=== PATIENT | female | born 1990 | race Two or more races ===

== ENCOUNTER 2016-10-11 07:04 | Emergency (ER) | payer OTHER ==
[~2016-10-11] VITALS: Ht 149.9 cm; Wt 48.5 kg
[~2016-10-11 07:04] MED LIST: CYCL-331 PO; ETON68IM3 SQ
[2016-10-11 07:10] VITALS: BP 120/76
--- NOTE | 2016-10-11 07:36 | PHYS DOC ---
Past History Past Medical History: No Pertinent History Past Surgical History: Other Additional Past Surgical Histo: Ankle Surgery Smoking: Cigarettes Alcohol Use: Occasionally Drug Use: None Adult General Chief Complaint Chief Complaint: Pt c/o RLQ/ Flank pain starting at approx 3am Pt states pain occured suddenly while walking at work. Pt denies injury or trauma. HPI HPI Patient is a 26yo year old female who presents with sudden onset of RLQ pain. Pt was at work and started suddenly while walking. Pain is constant pressure pain with intermittent episodes of sharp pain. Now pain is also located in R flank. Pt has some urgency with urination but denies dysuria or hematuria. Pt denies vaginal discharge. Pt denies N/V, no diarrhea. Pt states pain currently 3/10 "pressure" but when is "sharp" pain is 8-9/10., Pt denies F/C Pt is , since has BCP implant 2014 no menses, pt has one sexual partner Review of Systems Review of Systems Constitutional: Denies fever or chills Eyes: Denies change in visual acuity, redness, or eye pain HENT: Pt states has had some nasal congestion and mild cough for few days Respiratory: Mild cough without sputum and denies shortness of breath Cardiovascular: Denies Chest pain GI: Abdominal pain, no N/V, No Diarrhea, no hematemisis, no rectal bleeding, no melena : Denies dysuria or hematuria Musculoskeletal: Denies joint pain or swelling Integument: Denies rash or skin lesions Neurologic: Denies headache, focal weakness or sensory changes Endocrine: Denies polyuria or polydipsia Family History Family History Father has hx of Kidney stones Current Medications Current Medications none Allergies Allergies Allergies Coded Allergies Type Severity Reaction Last Updated Verified No Known Drug Allergies 12/13/15 No Physical Exam Physical Exam Constitutional: Well developed, well nourished, no acute distress, non-toxic appearance. HENT: Normocephalic, atraumatic, bilateral external ears normal, oropharynx moist, no oral exudates, nose normal. Eyes: PERRL, EOMI, conjunctiva normal, no discharge. Neck: Normal range of motion, no tenderness, supple, no stridor. Cardiovascular:Heart rate regular rhythm, no murmur Lungs & Thorax: Bilateral breath sounds clear to auscultation Abdomen: Bowel sounds normal, soft, mild RLQ tenderness to palpation, not tender of McBurneys pt, mild LLQ tenderness, no guarding, no rebound Skin: Warm, dry, no erythema, no rash. Back: No tenderness, no CVA tenderness. Extremities: No tenderness, no cyanosis, no clubbing, ROM intact, no edema. Neurologic: Alert and oriented X 3, normal motor function, normal sensory function, no focal deficits noted. Psychologic: Affect normal, judgement normal, mood normal. Pelvic Exam--white vaginal discharge, no cervical inflammation, Bimanual-no CMT , Mild R adenexal tenderness, no masses Current Patient Data Lab Results CBC normal with no left shift Metabolic panel normal with slightly low K+ Urine negative for infection or significant RBC, Urine HCG--neg EKG EKG [] Radiology/Procedures Radiology/Procedures Vital Signs Date Time Temp Pulse Resp B/P (MAP) Pulse Ox O2 Delivery O2 Flow Rate FiO2 10/11/16 07:10 98.3 76 16 100 Room Air Vital Signs Date Time Temp Pulse Resp B/P (MAP) Pulse Ox O2 Delivery O2 Flow Rate FiO2 10/11/16 07:10 98.3 76 16 100 Room Air Laboratory Tests Test 10/11/16 07:13 10/11/16 07:32 10/11/16 07:36 Urine Collection Type Unknown Urine Color Yellow Urine Clarity Hazy Urine pH 5.5 Urine Specific Ralph 1.025 Urine Protein Neg Urine Glucose (UA) Neg mg/dL Urine Ketones (Stick) Neg mg/dL Urine Blood Neg Urine Nitrite Neg Urine Bilirubin Neg Urine Urobilinogen Dipstick 0.2 mg/dL Urine Leukocyte Esterase Neg Urine RBC 1-2 /HPF Urine WBC Occ /HPF Urine Squamous Epithelial Cells Mod /LPF Urine Bacteria Few /HPF Urine Mucus Mod /LPF White Blood Count 6.9 x10^3/uL Red Blood Count 4.48 x10^6/uL Hemoglobin 13.4 g/dL Hematocrit 40.1 % Mean Corpuscular Volume 89 fL Mean Corpuscular Hemoglobin 30 pg Mean Corpuscular Hemoglobin Concent 33 g/dL Red Cell Distribution Width 12.6 % Platelet Count 196 x10^3/uL Neutrophils (%) (Auto) 45 % Lymphocytes (%) (Auto) 46 % Monocytes (%) (Auto) 6 % Eosinophils (%) (Auto) 2 % Basophils (%) (Auto) 1 % Neutrophils # (Auto) 3.1 x10^3uL Lymphocytes # (Auto) 3.2 x10^3/uL Monocytes # (Auto) 0.4 x10^3/uL Eosinophils # (Auto) 0.1 x10^3/uL Basophils # (Auto) 0.0 x10^3/uL Sodium Level 140 mmol/L Potassium Level 3.2 mmol/L Chloride Level 103 mmol/L Carbon Dioxide Level 27 mmol/L Anion Gap 10 Blood Urea Nitrogen 9 mg/dL Creatinine 0.7 mg/dL Estimated GFR (Cockcroft-Gault) 102.8 BUN/Creatinine Ratio 13 Glucose Level 120 mg/dL Calcium Level 8.7 mg/dL Total Bilirubin 0.3 mg/dL Aspartate Amino Transf (AST/SGOT) 17 U/L Alanine Aminotransferase (ALT/SGPT) 23 U/L Alkaline Phosphatase 63 U/L Total Protein 7.7 g/dL Albumin 3.8 g/dL Albumin/Globulin Ratio 1.0 Bedside Urine HCG, Qualitative hcg negative Current Medications Medications (Trade) Dose Ordered Sig/Mabel Route PRN Reason Start Time Stop Time Status Last Admin Dose Admin Sodium Chloride 1,000 ml @ 1,000 mls/hr 1X ONCE IV 10/11/16 07:45 10/11/16 08:44 10/11/16 07:45 [] Impressions: CT Abdomen and Pelvis--no stone, R ovarian cyst 2cm, duplicated R collecting system incidental finding, no hydro Course & Med Decision Making Course & Med Decision Making Pertinent Labs and Imaging studies reviewed. (See chart for details) Pt states feeling better, pt had some chest tightness after CT and obtained CXR- -negative and discussed with radiology Pt no tenderness over McBurneys point. Lungs CTA bilat Pt states pain better after Toradol Discussed with pt about ovarian cysts, appendicitis precautions and duplicated R renal collecting system seen on CT Will D/C home with follow up with PCP [place] Disclaimer Dragon Disclaimer This chart was dictated in whole or in part using Voice Recognition software in a busy, high-work load, and often noisy Emergency Department environment. It may contain unintended and wholly unrecognized errors or omissions. Departure Departure: Impression: Primary Impression: Right ovarian cyst Additional Impressions: Chest tightness Kidney stones Duplicated right renal collecting system Disposition: HOME, SELF-CARE Condition: STABLE Referrals: ADY TEIXEIRA (PCP) Patient Instructions: Ovarian Cyst Additional Instructions: Start Naprosyn for pain Follow up with your primary care physician in 1-3 days for recheck Return if worse or change in symptoms Problem Qualifiers DAVID DICKINSON MD October 11, 2016 07:36
[2016-10-11] MEDS ORDERED: IV NORMAL SALINE 1,000ML 1,000 ML IV ONE (07:45)
[2016-10-11 07:55] LABS: BASO % 1 % (0-3); EOS # 0.1 x10^3/uL (0.0-0.7); EOS % 2 % (0-3); HEMATOCRIT 40.1 % (36.0-47.0); HEMOGLOBIN 13.4 g/dL (12.0-15.5); LYMPH # 3.2 x10^3/uL (1.0-4.8); LYMPH % 46 % (24-48); MEAN CORPUSCULAR HEMOGLOBIN 30 pg (25-35); MEAN CORPUSCULAR HGB CONC 33 g/dL (31-37); MEAN CORPUSCULAR VOLUME 89 fL (79-100); MONO # 0.4 x10^3/uL (0.0-1.1); MONO % 6 % (0-9); NEUT # 3.1 x10^3uL (1.8-7.7); NEUT % 45 % (31-73); PLATELET COUNT 196 x10^3/uL (140-400); RED BLOOD COUNT 4.48 x10^6/uL (3.50-5.40); RED CELL DISTRIBUTION WIDTH 12.6 % (11.5-14.5); WHITE BLOOD COUNT 6.9 x10^3/uL (4.0-11.0)
[2016-10-11 08:03] LABS: BILIRUBIN,URINE NEG (NEG); CLARITY,URINE HAZY; COLOR,URINE YELLOW; GLUCOSE,URINE NEG (NEG)
[2016-10-11 08:04] LABS: ALBUMIN 3.8 g/dL (3.4-5.0); CALCIUM 8.7 mg/dL (8.5-10.1); CREATININE 0.7 mg/dL (0.6-1.0); GFR 102.8; POTASSIUM 3.2 mmol/L (3.5-5.1); TOTAL BILIRUBIN 0.3 mg/dL (0.2-1.0); TOTAL PROTEIN 7.7 g/dL (6.4-8.2)
[2016-10-11 08:04] LABS: BACTERIA,URINE FEW /HPF (0-FEW); NITRITE,URINE NEG (NEG); SQUAMOUS EPITHELIAL CELL,UR MOD /LPF; UROBILINOGEN,URINE 0.2 mg/dL (0.2 mg/dL); WBC,URINE OCC /HPF (0-4)
--- NOTE | 2016-10-11 08:37 | RAD ---
CT abdomen pelvis without contrast Indication: Right flank pain and right lower quadrant pain. Axial imaging through the abdomen and pelvis was performed without contrast. PQRS STATEMENT One or more of the following individualized dose reduction techniques were utilized for this study: 1.Automated exposure control. 2.Adjustment of the mA and/orkVaccording to patient size. 3.Use of iterative reconstruction technique. No prior studies are available for comparison. Lung bases are clear. Liver and gallbladder are unremarkable. The pancreas and spleen are unremarkable. No adrenal mass is identified. There appears to be duplication of the right renal collecting system and right ureter. However, no definite calculi are identified. The bladder is unremarkable. Small is a small cyst in the right ovary measuring 2 centimeters. No free fluid. The appendix appears unremarkable. Impression: 2 centimeter right ovarian cyst. Study is otherwise unremarkable. No urinary tract calculi or hydronephrosis is detected. Electronically signed by: Leeroy Giordano MD (October 11, 2016 08:36:25)
[2016-10-11] MEDS ORDERED: KETOROLAC 30 MG/ML VIAL. IV ONE (09:10)
--- NOTE | 2016-10-11 10:51 | RAD ---
Indication: Right flank pain. Time of exam 0848 hours. The heart size is normal. The lungs are clear. The pulmonary vascularity is normal. No infiltrate, effusion or pneumothorax is seen. Impression: No acute cardiopulmonary process is detected. MTDD
[2016-10-12 20:07] LABS: CHLAMYDIA PROBE Negative (Negative)
== END 2016-10-11 09:53 | disposition home or self-care (01) ==
LOC: ER 07:04
DX: N83.201 Unspecified ovarian cyst, right side (principal); R07.89 Other chest pain; N20.0 Calculus of kidney; Q63.8 Other specified congenital malformations of kidney; F17.210 Nicotine dependence, cigarettes, uncomplicated
CPT/HCPCS: 36415; 71020; 74176; 80053; 81001; 84703; 85027; 87491; 87591; 96361; 96374; 99285; J1885; Q0111; 81025; J7030

== ENCOUNTER 2017-07-14 05:34 | Emergency (ER) | payer OTHER ==
[~2017-07-14] VITALS: Ht 149.9 cm; Wt 46.7 kg
[2017-07-14] MEDS ORDERED: IV NORMAL SALINE 1,000ML 1,000 ML IV ONE (06:00)
--- NOTE | 2017-07-14 06:07 | PHYS DOC ---
Past History Past Medical History: No Pertinent History Past Surgical History: Other Additional Past Surgical Histo: Ankle Surgery Smoking: Cigarettes Alcohol Use: Occasionally Drug Use: None Adult General Chief Complaint Chief Complaint: abdominal pain [facility] HPI 27-year-old female patient with history of ovarian cyst complaining of bilateral lower abdominal pain intermittently for the last 4 or 5 days as a sharp pain that usually lasts about 10 minutes associated with constant back pain that getting worse with movement. Patient denies nausea and vomiting, fever and chills, vaginal bleeding or discharge, diarrhea and constipation. Patient that she has frequent urination. Patient that she had the same pain with her previous episodes of ovarian cyst. Patient rated her pain 9/10 and denies . Review of Systems Review of Systems Constitutional: Denies fever or chills [] Eyes: Denies change in visual acuity, redness, or eye pain [] HENT: Denies nasal congestion or sore throat [] Respiratory: Denies cough or shortness of breath [] Cardiovascular: No additional information not addressed in HPI [] GI: Report abdominal pain, denies nausea, vomiting, bloody stools or diarrhea [] : Denies dysuria or hematuria [] Musculoskeletal: Denies back pain or joint pain [] Integument: Denies rash or skin lesions [] Neurologic: Denies headache, focal weakness or sensory changes [] Endocrine: Denies polyuria or polydipsia [] All other systems were reviewed and found to be within normal limits, except as documented in this note. Allergies Allergies Allergies Coded Allergies Type Severity Reaction Last Updated Verified shellfish derived Allergy Unknown 10/11/16 Yes Physical Exam Physical Exam Constitutional: Well developed, well nourished, mild distress, non-toxic appearance. [] HENT: Normocephalic, atraumatic, bilateral external ears normal, oropharynx moist, no oral exudates, nose normal. [] Eyes: PERRLA, EOMI, conjunctiva normal, no discharge. [] Neck: Normal range of motion, no tenderness, supple, no stridor. [] Cardiovascular:Heart rate regular rhythm, no murmur [] Lungs & Thorax: Bilateral breath sounds clear to auscultation [] Abdomen: Bowel sounds normal, soft, no tenderness, no masses, no pulsatile masses. [] Skin: Warm, dry, no erythema, no rash. [] Back: No tenderness, no CVA tenderness. [] Extremities: No tenderness, no cyanosis, no clubbing, ROM intact, no edema. [] Neurologic: Alert and oriented X 3, normal motor function, normal sensory function, no focal deficits noted. [] Psychologic: Affect normal, judgement normal, mood normal. [] EKG EKG [] Radiology/Procedures Radiology/Procedures [] Course & Med Decision Making Course & Med Decision Making Pertinent Labs are pending. (see chart for details) [place] [id number] [] Dragon Disclaimer Dragon Disclaimer This electronic medical record was generated, in whole or in part, using a voice recognition dictation system. Departure Departure: Referrals: ADY TEIXEIRA (PCP) ZANDER GARVIN MD Jul 14, 2017 06:07
[2017-07-14 06:16] LABS: U PREG PATIENT NEGATIVE (NEG)
[2017-07-14 06:22] LABS: BILIRUBIN,URINE NEG (NEG); CLARITY,URINE HAZY; COLOR,URINE YELLOW; GLUCOSE,URINE NEG (NEG)
[2017-07-14 06:23] LABS: BACTERIA,URINE FEW /HPF (0-FEW); NITRITE,URINE NEG (NEG); SQUAMOUS EPITHELIAL CELL,UR MANY /LPF; UROBILINOGEN,URINE 0.2 mg/dL (0.2 mg/dL)
[2017-07-14 06:28] LABS: BASO % 1 % (0-3); EOS # 0.1 x10^3/uL (0.0-0.7); EOS % 1 % (0-3); HEMATOCRIT 41.8 % (36.0-47.0); HEMOGLOBIN 14.1 g/dL (12.0-15.5); LYMPH % 42 % (24-48); MEAN CORPUSCULAR HEMOGLOBIN 30 pg (25-35); MEAN CORPUSCULAR HGB CONC 34 g/dL (31-37); MEAN CORPUSCULAR VOLUME 88 fL (79-100); MONO # 0.5 x10^3/uL (0.0-1.1); MONO % 7 % (0-9); NEUT # 3.6 x10^3uL (1.8-7.7); NEUT % 50 % (31-73); PLATELET COUNT 231 x10^3/uL (140-400); RED BLOOD COUNT 4.75 x10^6/uL (3.50-5.40); RED CELL DISTRIBUTION WIDTH 13.3 % (11.5-14.5); WHITE BLOOD COUNT 7.2 x10^3/uL (4.0-11.0)
[2017-07-14] MEDS ORDERED: KETOROLAC 30 MG/ML VIAL. IV ONE (06:30)
[2017-07-14 06:40] LABS: ALBUMIN 4.2 g/dL (3.4-5.0); ALBUMIN/GLOBULIN RATIO 1.2 (1.0-1.7); CALCIUM 9.1 mg/dL (8.5-10.1); CREATININE 0.7 mg/dL (0.6-1.0); POTASSIUM 3.3 mmol/L (3.5-5.1); TOTAL BILIRUBIN 0.5 mg/dL (0.2-1.0); TOTAL PROTEIN 7.7 g/dL (6.4-8.2)
--- NOTE | 2017-07-14 07:52 | RAD ---
Pelvic ultrasound, 07/14/2017: History: Right-sided pelvic pain Transabdominal and transvaginal scans were obtained. The uterus is within normal limits in size. A normal central uterine echoes present. No uterine abnormality is seen. The ovaries are of normal size. They contain small follicular cysts. The largest cyst lies in the right ovary and measures 2.2 cm. It is a simple cyst with angulation of its margins suggesting a collapsing functional cyst. The adnexal regions are otherwise unremarkable. IMPRESSION: 1. 2.2 cm right ovarian cyst. 2. Small amount of free fluid in the pelvis.
[2017-07-14] MEDS ORDERED: HYDR-2758 PO (08:04)
[2017-07-14] MEDS ORDERED: NAPR-683 PO (08:04)
[2017-07-14 08:10] VITALS: BP 119/60
== END 2017-07-14 08:10 | disposition home or self-care (01) ==
LOC: ER 05:34
DX: N83.201 Unspecified ovarian cyst, right side (principal); F17.210 Nicotine dependence, cigarettes, uncomplicated; Z91.013 Allergy to seafood
CPT/HCPCS: 36415; 76830; 76856; 80053; 81001; 81025; 85025; 96361; 96374; 99285; J1885; J7030

== ENCOUNTER 2017-12-03 00:08 | Emergency (ER) | payer OTHER ==
[~2017-12-03] VITALS: Ht 149.9 cm; Wt 50.7 kg
[~2017-12-03 00:08] MED LIST changes: +HYDR-2758 PO; +NAPR-683 PO
[2017-12-03] MEDS ORDERED: IV NORMAL SALINE 1,000ML 1,000 ML IV ONE (00:30)
[2017-12-03] MEDS ORDERED: PROCHLORPERAZINE 10 MG/2 ML VIAL. IV ONE (00:30)
--- NOTE | 2017-12-03 00:38 | PHYS DOC ---
Past History Past Medical History: No Pertinent History Past Surgical History: Other Additional Past Surgical Histo: Ankle Surgery Smoking: Cigarettes Alcohol Use: Occasionally Drug Use: None Adult General Chief Complaint Chief Complaint: DIZZY/LIGHT HEADED HPI HPI 27-year-old female presents with one-day history of dizziness. She describes the dizziness as a lightheaded, off balance feeling. This started at 8:00 this morning and has continued all day. The patient was off work today and stayed inside. She try to take her dog for a walk with the dizziness was quite bothersome so she went back inside. He has not had anything like this before. She has been eating and drinking normally. She does not usually drink water, but drinks Coca-Cola and Red Bull. She denies any trauma or head injuries. She denies drug use. She has not had any alcohol in 3 days. She does not drink daily. She denies . She has an Implanon, but is sexually active. She denies fever or chills. Review of Systems Review of Systems Constitutional: Denies fever or chills [] Eyes: Denies change in visual acuity, redness, or eye pain [] HENT: Denies nasal congestion or sore throat [] Respiratory: Denies cough or shortness of breath [] Cardiovascular: No additional information not addressed in HPI [] GI: Denies abdominal pain, nausea, vomiting, bloody stools or diarrhea [] : Denies dysuria or hematuria [] Musculoskeletal: Denies back pain or joint pain [] Integument: Denies rash or skin lesions [] Neurologic: Dizziness[] Endocrine: Denies polyuria or polydipsia [] All other systems were reviewed and found to be within normal limits, except as documented in this note. Current Medications Current Medications Current Medications Medications (Trade) Dose Ordered Sig/Mabel Start Time Stop Time Status Last Admin Dose Admin Prochlorperazine Edisylate (Compazine) 10 mg 1X ONCE 12/03/17 00:30 12/03/17 00:31 UNV Sodium Chloride 1,000 ml @ 1,000 mls/hr 1X ONCE 12/03/17 00:30 12/03/17 01:29 UNV Allergies Allergies Allergies Coded Allergies Type Severity Reaction Last Updated Verified shellfish derived Allergy Unknown 10/11/16 Yes Physical Exam Physical Exam Constitutional: Well developed, well nourished, no acute distress, non-toxic appearance. [] HENT: Normocephalic, atraumatic, bilateral external ears normal, oropharynx moist, no oral exudates, nose normal. [] Eyes: PERRLA, EOMI, conjunctiva normal, no discharge. [] Neck: Normal range of motion, no tenderness, supple, no stridor. [] Cardiovascular:Heart rate regular rhythm, no murmur [] Lungs & Thorax: Bilateral breath sounds clear to auscultation [] Abdomen: Bowel sounds normal, soft, no tenderness, no masses, no pulsatile masses. [] Skin: Warm, dry, no erythema, no rash. [] Back: No tenderness, no CVA tenderness. [] Extremities: No tenderness, no cyanosis, no clubbing, ROM intact, no edema. [] Neurologic: Alert and oriented X 3, normal motor function, normal sensory function, no focal deficits noted. [] Psychologic: Affect normal, judgement normal, mood normal. [] Current Patient Data Vital Signs Vital Signs Date Time Temp Pulse Resp B/P (MAP) Pulse Ox O2 Delivery O2 Flow Rate FiO2 12/03/17 00:15 98.8 71 20 99 Room Air EKG EKG [] Radiology/Procedures Radiology/Procedures [] Course & Med Decision Making Course & Med Decision Making Pertinent Labs and Imaging studies reviewed. (See chart for details) The patient's labs are unremarkable. We gave her 1 L of normal saline before she was able to provide a urine sample. Her urine is negative. She is not . The patient was also given 10 mg of Compazine. The patient is feeling slightly better, but still has some dizziness. I do not have a definitive reason for this. Her labs are reassuring. Her lack of more serious symptoms is also reassuring. I will give her prescription for meclizine to see if this helps. I believe this is likely a temporary inner ear issue that would resolve on its own. I discussed all this with the patient she is in agreement with plan. If her condition worsens or new symptoms develop she will seek further care. [] Dragon Disclaimer Dragon Disclaimer This electronic medical record was generated, in whole or in part, using a voice recognition dictation system. Departure Departure: Referrals: PCP,UNKNOWN (PCP) CARLOS LIZARRAGA DO Dec 03, 2017 00:38
[2017-12-03 01:30] LABS: BASO % 1 % (0-3); EOS # 0.2 x10^3/uL (0.0-0.7); EOS % 3 % (0-3); HEMATOCRIT 40.4 % (36.0-47.0); HEMOGLOBIN 13.7 g/dL (12.0-15.5); LYMPH # 2.5 x10^3/uL (1.0-4.8); LYMPH % 41 % (24-48); MEAN CORPUSCULAR HEMOGLOBIN 30 pg (25-35); MEAN CORPUSCULAR HGB CONC 34 g/dL (31-37); MEAN CORPUSCULAR VOLUME 88 fL (79-100); MONO # 0.4 x10^3/uL (0.0-1.1); MONO % 7 % (0-9); NEUT % 48 % (31-73); PLATELET COUNT 219 x10^3/uL (140-400); RED BLOOD COUNT 4.58 x10^6/uL (3.50-5.40); RED CELL DISTRIBUTION WIDTH 13.1 % (11.5-14.5); WHITE BLOOD COUNT 6.1 x10^3/uL (4.0-11.0)
[2017-12-03 01:34] LABS: CALCIUM 8.9 mg/dL (8.5-10.1); CREATININE 0.7 mg/dL (0.6-1.0); POTASSIUM 3.6 mmol/L (3.5-5.1)
[2017-12-03 02:25] LABS: BACTERIA,URINE FEW /HPF (0-FEW); BILIRUBIN,URINE NEG (NEG); CLARITY,URINE CLEAR; COLOR,URINE YELLOW; GLUCOSE,URINE NEG (NEG); NITRITE,URINE NEG (NEG); SQUAMOUS EPITHELIAL CELL,UR FEW /LPF; UROBILINOGEN,URINE 0.2 mg/dL (0.2 mg/dL); WBC,URINE 0 /HPF (0-4)
[2017-12-03] MEDS ORDERED: MECL12.52 PO (02:38)
[2017-12-03] MEDS ORDERED: MECLIZINE 12.5 MG TABLET. ONE (02:58)
[2017-12-03 03:00] VITALS: BP 108/68
[2017-12-03] MEDS ORDERED: MECLIZINE 12.5 MG TABLET. PO PRN (03:00)
== END 2017-12-03 03:01 | disposition home or self-care (01) ==
LOC: ER 00:08
DX: R42 Dizziness and giddiness (principal); F17.210 Nicotine dependence, cigarettes, uncomplicated; Z91.013 Allergy to seafood
CPT/HCPCS: 36415; 80048; 81001; 81025; 85025; 96361; 96374; 99284; J0780; J8597; J7030